=== PATIENT | female | born 1965 | race Caucasian/White ===

== ENCOUNTER → 2018-07-15 13:39 | Outpatient (CLI) | payer OTHER ==
--- NOTE | 2018-07-28 10:38 | ST ---
PATIENT:DEE SLOAN MEDICAL RECORD: [id number] SEX: F LOCATION:[facility] ORDER #: ADMISSION DATE: 07/15/18 AGE OF PATIENT: 52 REFERRING PHYSICIAN: INTERPRETING PHYSICIAN: SATNAM MONTANO MD DATE OF SERVICE: 07/15/2018 INDICATIONS: Chest pain, family history of coronary artery disease. FINDINGS: She was exercised on standard Juan Carlos protocol for 10 minutes achieving greater than 85% of max target heart rate response with shortness of breath, but no chest pain. There were EKG changes compatible with ischemia. OVERALL IMPRESSION: Abnormal EKG stress test by EKG criteria. Would repeat with nuclear imaging. TRANSINT:[id number] Voice Confirmation ID: [id number] DOCUMENT ID: [id number] SATNAM MONTANO MD at 1038 CC: [id number] DICTATION DATE: 07/15/18 1659 MOLD CHIPPER: 07/16/18 1026 DEP CLI 07/15/18 [id number] [place] [address]
--- NOTE | 2018-07-28 10:38 | EC ---
PATIENT:DEE SLOAN DATE OF SERVICE: 07/15/18 SEX: F MEDICAL RECORD: [id number] DATE OF : 65 [facility] AGE OF PATIENT: 52 ADMISSION DATE: 07/15/18 REFERRING PHYSICIAN: INTERPRETING PHYSICIAN: SATNAM RUVALCABA MD ECHOCARDIOGRAM REPORT ECHO CHARGES 4 ECHO COMPLETE Date: 07/15/18 CLINICAL DIAGNOSIS: HTN/CP/FATIGUE ECHOCARDIOGRAPHIC MEASUREMENTS (adult normal given) AC root (d.<3.7cm) 2.7 cm LV Septum d (<1.2 cm> 1.1 cm Valve Excursion 1.9 cm LV Septum (systole) 1.9 cm Left Atria (s.<4.0cm> 2.9 cm LVPW d(<1.2cm) 1.0 cm RV (d.<2.3cm) 2.5 cm LVPW (sytole) 1.8 cm LV diastole(<5.6CM) 5.0 cm MV E-F(>70mm/sec) cm LV systole 2.3 cm LVOT Diameter 1.7 cm MV exc.(>10mm) cm Est.ejection fraction (50-75%) % DOPPLER: LVIT cm/sec A 45.0 cm/sec E 87.0 cm/sec LA cm/sec RVSP 19.4 mmHg LVOT 114 cm/sec AOP1/2T m/s Asc. Ao 141 cm/sec RVOT 56.0 cm/sec RA cm/sec PA 73.0 cm/sec AV Gradient Peak 7.9 mmHg AV Mean 4.1 mmHg AV Area 1.8 cm MV Gradient Peak 4.1 mmHg MV Mean 1.3 mmHg MV Area cm COMMENTS: OP - HC Produce Laborer: Annabel DELGADOOE Traffic Officer: 1 Dr. Ruvalcaba TAPE# PACS Pericardial Effusion N DATE OF SERVICE: 07/15/2018 FINDINGS: 1. Left ventricular chamber size is within normal limits. Left ventricular systolic function is normal. Overall ejection fraction is estimated at 55%. 2. Left atrium, right atrium, and right ventricular chamber sizes are within normal limit. 3. Valvular structures have normal structure and motion. 4. Doppler interrogation reveals trace mitral regurgitation and trace tricuspid regurgitation. No other valvular insufficiency or stenosis. Pulmonary systolic ECHOCARDIOGRAM REPORT [id number] DEE SLOAN pressure is normal, estimated at 19 mmHg. 5. No evidence of pericardial effusion or left ventricular thrombus. TRANSINT:[id number] Voice Confirmation ID: [id number] DOCUMENT ID: [id number] SATNAM RUVALCABA MD at 1038 CC: [id number] DICTATION DATE: 07/15/18 1653 SURVEYOR INSTRUMENT ASSISTANT: 07/15/181925 DEP CLI 07/15/18 [place] [id number] [place] [id number]
== END | disposition home or self-care (01) ==
LOC: D.HCCARDIO 13:39
PROVIDERS: ATTEND Internal Medicine Interventional Cardiology
DX: R07.9 Chest pain, unspecified (principal)

== ENCOUNTER → 2018-07-22 08:51 | Outpatient (CLI) | payer OTHER ==
--- NOTE | 2018-07-28 10:39 | ST ---
PATIENT:DEE SLOAN MEDICAL RECORD: [id number] SEX: F LOCATION:[facility] ORDER #: ADMISSION DATE: 07/22/18 AGE OF PATIENT: 52 REFERRING PHYSICIAN: INTERPRETING PHYSICIAN: SATNAM MONTANO MD DATE OF SERVICE: 07/22/2018 PROCEDURE: Nuclear stress test. INDICATION: Chest pain. DESCRIPTION OF PROCEDURE: She was exercised on standard Juan Carlos protocol for 7 minutes and 45 seconds achieving greater than 85% max target heart rate response with 33 mCi of sestamibi injected at peak stress, 11 mCi were used previously for rest images. FINDINGS: Gated SPECT reveals preserved ejection fraction at 69% with good wall motion and thickening and brightening throughout all segments. SPECT imaging Cardiolite was used as myocardial fusion agent. There is homogeneous uptake throughout all segments at rest and stress with no evidence of inducible ischemia or previous infarction. OVERALL IMPRESSION: 1. This is a normal nuclear stress test with no evidence of inducible ischemia or previous infarction. 2. Gated SPECT reveals a preserved ejection fraction at 69%. In this patient with ongoing symptomatology, the current scan does not suggest the presence of hemodynamically significant coronary artery disease. Evaluate noncardiac etiology of chest pain. TRANSINT:[id number] Voice Confirmation ID: [id number] DOCUMENT ID: [id number] SATNAM MONTANO MD at 1039 CC: YOVANI FLORES [id number] DICTATION DATE: 07/23/18 1224 IGNITION EXPERT: 07/24/18 0741 DEP CLI 07/22/18 [id number] [place] [address]
== END | disposition home or self-care (01) ==
LOC: D.HCCARDIO 08:51
PROVIDERS: ATTEND Internal Medicine Interventional Cardiology
DX: R07.9 Chest pain, unspecified (principal)

== ENCOUNTER → 2019-12-01 11:22 | Outpatient (CLI) | payer OTHER | END | disposition home or self-care (01) | LOC: D.NM 11:22 | PROVIDERS: ATTEND Family Medicine | DX: R93.89 Abnormal findings on diagnostic imaging of other specified body structures (principal); M54.6 Pain in thoracic spine ==

== ENCOUNTER → 2019-12-08 09:02 | Outpatient (CLI) | payer OTHER | END | disposition home or self-care (01) | LOC: D.CT 09:02 | PROVIDERS: ATTEND Family Medicine | DX: M54.6 Pain in thoracic spine (principal) ==